=== PATIENT | male | born 1995 | race Caucasian/White ===

== ENCOUNTER 2019-03-17 21:52 | Emergency (ER) | payer OTHER, SELFPAY ==
[2019-03-17] MEDS ORDERED: traMADol HCl 50 MG TAB ONE (22:20)
[2019-03-17] MEDS ORDERED: Sulfameth/Trimethoprim DS 800-160mg TAB ONE ×2 (22:21)
== END 2019-03-17 22:22 | disposition home or self-care (01) ==
LOC: EDBD 21:52 → BURERS 21:52
DX: L02.413 Cutaneous abscess of right upper limb (principal); L98.9 Disorder of the skin and subcutaneous tissue, unspecified; F17.220 Nicotine dependence, chewing tobacco, uncomplicated
CPT/HCPCS: 10060

== ENCOUNTER 2019-03-19 18:14 | Emergency (ER) | payer SELFPAY ==
[2019-03-19] MEDS ORDERED: Bacitracin 1 PK ONE (18:57)
--- NOTE | 2019-03-19 20:06 | RAD ---
RIGHT FOREARM TWO VIEWS: 03/19/2019 FINDINGS: The radius and ulna appear intact. There is no sign of fracture. The visible portions of the elbow an d carpal bones are unremarkable as well. IMPRESSION: No acute finding. POS: HOME
== END 2019-03-19 19:28 | disposition home or self-care (01) ==
LOC: BURERS 18:14
DX: Z48.817 Encounter for surgical aftercare following surgery on the skin and subcutaneous tissue (principal); M79.631 Pain in right forearm; F17.220 Nicotine dependence, chewing tobacco, uncomplicated; Z79.899 Other long term (current) drug therapy

== ENCOUNTER 2019-08-13 14:38 | Emergency (ER) | payer SELFPAY ==
[2019-08-13] MEDS ORDERED: Adacel (T-DAP) 0.5 ML SYRINGE ONE (15:17)
[2019-08-13] MEDS ORDERED: Ketorolac Tromethamine 30 MG/ML VIAL ONE (16:08)
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
== END 2019-08-13 16:15 | disposition home or self-care (01) ==
LOC: BURERS 14:38
DX: S02.2XXA Fracture of nasal bones, initial encounter for closed fracture (principal); S00.83XA Contusion of other part of head, initial encounter; Z23 Encounter for immunization; F17.210 Nicotine dependence, cigarettes, uncomplicated; F17.220 Nicotine dependence, chewing tobacco, uncomplicated; W18.30XA Fall on same level, unspecified, initial encounter
CPT/HCPCS: 70450; 70486; 90471; 90715; 96372; J1885